=== PATIENT | female | born 1960 | race American Indian/Alaskan Native ===

== ENCOUNTER 2018-06-16 13:57 | Inpatient (IN) | payer MEDICAID ==
--- NOTE | 2018-06-16 15:38 | C.PDOC ---
History Of Present Illness 57 y/o female presents to ED requesting detox from heroin. Otherwise, she denies SI, HI, or any active physical complaints at this time. Time Seen by Provider: 06/16/18 14:40 Chief Complaint (Nursing): Substance Abuse History Per: Patient History/Exam Limitations: no limitations Onset/Duration Of Symptoms: Gradual Current Symptoms Are (Timing): Still Present Suicide/Self Injury Attempted (Context): None Modifying Factor(s): Other (heroin) Severity: None Pain Scale Rating Of: 0 Associated Symptoms: denies: Suicidal Thoughts, Suicidal Plan Involuntary Hold By: None Recent travel outside of the [place]: No Additional History Per: Patient Past Medical History Reviewed: Historical Data, Nursing Documentation, Vital Signs Vital Signs: Last Vital Signs Temp 98.7 F 06/16/18 14:03 Pulse 73 06/16/18 18:43 Resp 20 06/16/18 18:43 BP 152/102 H 06/16/18 18:43 Pulse Ox 100 06/16/18 18:43 - Medical History PMH: Asthma, HTN Denies: Diabetes, Hepatitis, HIV, Seizures, Sexually Transmitted Disease - [facility] Procedures DETOXIFICATION SERVICES FOR SUBSTANCE ABUSE TREATMENT (07/08/15) Family History: States: Unknown Family Hx - Social History Hx Alcohol Use: Yes Hx Substance Use: Yes (SEE TRIAGE NOTE) - Immunization History Hx Tetanus Toxoid Vaccination: No Hx Influenza Vaccination: No Review Of Systems Except As Marked, All Systems Reviewed And Found Negative. Constitutional: Negative for: Fever, Chills Cardiovascular: Negative for: Chest Pain, Palpitations Respiratory: Negative for: Cough, Shortness of Breath Gastrointestinal: Negative for: Nausea, Vomiting, Abdominal Pain Musculoskeletal: Negative for: Neck Pain, Back Pain Neurological: Negative for: Weakness, Numbness, Headache, Dizziness Physical Exam - Physical Exam Appears: Non-toxic, No Acute Distress Skin: Normal Color, Warm, Dry Head: Atraumatic, Normacephalic Eye(s): bilateral: Normal Inspection Oral Mucosa: Moist Neck: Normal ROM, Supple Cardiovascular: Rhythm Regular Respiratory: Normal Breath Sounds, No Rales, No Rhonchi, No Wheezing Gastrointestinal/Abdominal: Soft, No Tenderness Extremity: Normal ROM, No Deformity Neurological/Psych: Oriented x3, Normal Speech ED Course And Treatment - Laboratory Results Result Diagrams: 06/16/18 15:56 09/14/18 15:56 O2 Sat by Pulse Oximetry: 99 (on RA) Pulse Ox Interpretation: Normal Progress Note: Medically cleared for detox, accepted by . Medical Decision Making Medical Decision Making: Plan: Blood work Urinalysis Catapres On re-eval, is resting comfortably. No physical complaints at this time. Disposition - Disposition Disposition: HOSPITALIZED Disposition Time: 17:53 Condition: STABLE - Clinical Impression Clinical Impression: Opiate dependence - PA / GIS PROGRAMMER / Resident Statement MD/DO has reviewed & agrees with the documentation as recorded. - Scribe Statement The provider has reviewed the documentation as recorded by the Scribe Berry Blandon All medical record entries made by the Scribe were at my direction and personally dictated by me. I have reviewed the chart and agree that the record accurately reflects my personal performance of the history, physical exam, medical decision making, and the department course for this patient. I have also personally directed, reviewed, and agree with the discharge instructions and disposition. Decision To Admit - Pt Status Changed To: Hospital Disposition Of: Inpatient - Admit Certification Admit to Inpatient:: After my assessment, the patient will require hospitalization for at least two midnights. This is because of the severity of symptoms shown, intensity of services needed, and/or the medical risk in this patient being treated as an outpatient. - InPatient: Physician Admission Certification: I certify that this patient requires 2 or more midnights of care for the following reason:: Patient will need more than 2 days for detox. - . Bed Request Type: Detox Admitting Physician: Corey Miller Patient Diagnosis: Opiate dependence
[2018-06-16 16:07] LABS: BASO % 0.5 % (0.0-2.0); EOS # 0.1 K/uL (0.0-0.7); EOS % 1.7 % (0.0-4.0); HEMOGLOBIN 12.7 g/dL (11.0-16.0); LYMPH # 1.9 K/uL (1.0-4.3); LYMPH % 36.3 % (20.0-40.0); MEAN CELL VOLUME 87.3 fL (81.0-99.0); MEAN CORPUSCULAR HEMOGLOBIN 29.5 pg (27.0-31.0); MEAN CORPUSCULAR HGB CONC 33.8 g/dL (33.0-37.0); MEAN PLATELET VOLUME 8.5 fL (7.2-11.7); MONO # 0.5 K/uL (0.0-0.8); MONO % 9.5 % (0.0-10.0); NEUT # 2.6 K/uL (1.8-7.0); NRBC % 0.2 % (0.0-2.0); RBC 4.3 Mil/uL (3.80-5.20); RED CELL DISTRIBUTION WIDTH 14.7 % (11.5-14.5); WHITE BLOOD COUNT 5.1 K/uL (4.8-10.8)
[2018-06-16 16:18] LABS: SQUAMOUS EPITHIAL 7 /hpf (0-5); URINE BACTERIA OCC (<OCC); URINE BILIRUBIN NEGATIVE (NEGATIVE); URINE BLOOD NEGATIVE (NEGATIVE); URINE CLARITY Hazy (Clear); URINE COLOR Yellow (YELLOW); URINE GLUCOSE (UA) NORMAL (Normal); URINE PROTEIN NEGATIVE (NEGATIVE); URINE UROBILINOGEN NORMAL mg/dL (0.2-1.0)
[2018-06-16 16:22] LABS: URINE LEUKOCYTE ESTERASE 1+ Leu/uL (Negative)
[2018-06-16 16:24] LABS: ALB/GLOB RATIO 1.3 (1.0-2.1); ALBUMIN 4.2 g/dL (3.5-5.0); ALT/SGPT 25 U/L (9-52); AST/SGOT 18 U/L (14-36); BLOOD UREA NITROGEN 15 mg/dL (7-17); CALCIUM 9.8 mg/dl (8.6-10.4); GFR NON-AFRICAN AMERICAN > 60
[2018-06-16 16:38] LABS: BARBITURATES, UR NEGATIVE (NEGATIVE); BENZODIAZEPINES, UR NEGATIVE (NEGATIVE); PHENCYCLIDINE, UR NEGATIVE (NEGATIVE)
[2018-06-16 16:43] LABS: OPIATES, UR POSITIVE (NEGATIVE)
[2018-06-16] MEDS ORDERED: Buprenorphine Hydrochloride 2 mg SL ONE ×2 (19:41→21:00)
--- NOTE | 2018-06-16 21:04 | PCM.BM ---
<Anum Burgos - Last Filed: 06/16/18 21:03> Treatment Plan Problems - Problems identified on initial assessmt Potential for opiate withdrawal Date Initiated: 06/16/18 Time Initiated: 21:03 Assessment reference: NA Status: Active potential for alcohol withdrawal Date Initiated: 06/16/18 Time Initiated: 21:04 Assessment reference: NA Status: Active Treatment assets and liabiliti Patient Assests: ADL independent, negotiates basic needs, cognitively intact Patient Liabilities: substance abuse (opiates, cocaine ) - Milieu Protocol Maintain good personal hygiene: daily Encourage regular showers, daily Remind patient to perform daily oral care Conduct patient checks and document Observation sheet: Q15 minutes Maintain personal safety: every shift Educate patient to report safety concerns to staff, every shift Monitor environment for contraband/sharps Medication safety: Monitor for expected outcome, potential side effects: every shift, Assess barriers to learning: every shift, Assess readiness for medication education: every shift <Corey Miller - Last Filed: 06/17/18 16:31> - Diagnosis (1) Alcohol abuse Status: Acute Interventions: 06/17/18 16:31 * Assess 7x/week regarding severity of withdrawal * Educate regarding risks, benefits, side effects and alternatives of medications * Use Motivational Interviewing for abstinence * Use CBT for relapse prevention * Medication management for withdrawal symptoms * Encourage medication assisted treatment * <Niyah Ashraf - Last Filed: 06/19/18 13:56> Family Contact Family involvement: Famliy/SO not involved - Goals for Treatment Patient goals for treatment: Complete detox and apply for inpatient rehab program. Discharge/Continuing Care - Education Needs Education Needs: Patient Medication, Patient Diagnosis/Disease Process, Patient Coping Skills, Patient Anger Management skills, Patient Placement options, Patient Community resources - Discharge Discharge Criteria: Normal sleep pattern, No longer exhibiting s/s of withdrawal , Reduction of target symptoms Discharge to:: Substance Abuse Rehab - Treatment Team Participation Patient/Family/SO Statement: 06/19/18 13:56 "I wanna go to inpatient but I don't have ID..." Was Patient/Family/SO present at Treatment Team Meeting: Yes
--- NOTE | 2018-06-16 23:28 | CP.PCM.CON ---
Addendum entered and electronically signed by Antwon Bennett DO 06/17/18 01:09 : Assessment/plan Urinalysis positve for leukocyte esterase (1+) * Recheck UA stat, as sample has 7+ epithelial cells and may be contaminated Original Note: <Antwon Bennett - Last Filed: 06/16/18 23:25> History of Present Illness - History of Present Illness History of Present Illness: PGY-[address] Wagoner Patient is a 57 year old female with PMHx Bipolar disorder, depression, hypertension, asthma, IV heroin use who presents with symptoms of withdrawal including nausea and fatigue. Pt reports using 10-12 bags of heroin/day. Last drug use was yesterday. Pt also admits to drinking one 6-pack of beer/day, her last drink was yesterday. Medicine was consulted for management of hypertension. BP on admission was in 150s/110s. Patient is on 5mg Norvasc po daily as home medication and admits to being noncompliant with all of her medications due to her drug addiction. Patient did receive .1 mg Clonidine x2, but according to nursing had not yet received her daily Norvasc. Pt denies any headaches, fevers, chills, dizziness, palpitations, blurry vision. Pt denies SI or HI. PMHx: Bipolar disorder, MDD, IVDU, EtOh abuse, HTN, asthma PShx: Unknown Medications: Norvasc 5mg po daily, trazadone 100 mg po HS, Gabapentin 400 mg PO TID, Protonix 40mg po daily, Librium 25mg PO q4 prn, folic acid 1 mg po daily, hexavitamin 1 tab po daily, Thiamine 100 mg PO daily Allergies: NKA Social: IV heroin use, Etoh abuse as stated, 15 pack-year smoking history Fam hx- Mother - cancer Hospitalizations: Prior hospitalizations for heroin withdrawal Review of Systems - Constitutional Constitutional: Fatigue. absent: Chills, Fever - EENT Nose/Mouth/Throat: absent: Epistaxis, Nasal Discharge - Cardiovascular Cardiovascular: absent: Chest Pain, Chest Pain at Rest - Respiratory Respiratory: absent: Cough, Dyspnea - Gastrointestinal Gastrointestinal: Nausea. absent: Abdominal Pain, Diarrhea, Vomiting - Musculoskeletal Musculoskeletal: absent: Muscle Cramps, Muscle Weakness - Neurological Neurological: absent: Confusion, Dizziness, Numbness, Headaches, Syncope - Psychiatric Psychiatric: Depression - Endocrine Endocrine: absent: Polydipsia, Polyphagia Past Patient History - Past Medical History & Family History Past Medical History?: Yes - Past Social History Smoking Status: Heavy Smoker > 10 Cigarettes Daily - CARDIAC Hx Hypertension: Yes - PULMONARY Hx Asthma: Yes - NEUROLOGICAL Hx Seizures: No - HEMATOLOGICAL/ONCOLOGICAL Hx Human Immunodeficiency Virus (HIV): No - MUSCULOSKELETAL/RHEUMATOLOGICAL Hx Falls: No - GENITOURINARY/GYNECOLOGICAL Hx Sexually Transmitted Disorders: No - PSYCHIATRIC Hx Substance Use: Yes - SURGICAL HISTORY Hx Surgeries: No - ANESTHESIA Hx Anesthesia: No Hx Anesthesia Reactions: No Meds Allergies/Adverse Reactions: Allergies Allergy/AdvReac Type Severity Reaction Status Date / Time No Known Allergies Allergy Unverified 06/16/18 14:06 - Medications Medications: Current Medications Amlodipine Besylate (Norvasc) 5 mg PO DAILY DWAYNE Chlordiazepoxide (Librium) 25 mg PO Q4H PRN PRN Reason: Alcohol Withdrawal Chlordiazepoxide (Librium) 0 mg PO Q6 DWAYNE PRN Reason: Taper Stop: 06/20/18 23:59 Clonidine HCl (Catapres) 0.1 mg PO Q4H PRN PRN Reason: Symptoms of alcohol withdrawl Folic Acid (Folic Acid) 1 mg PO DAILY DWAYNE Gabapentin (Neurontin) 100 mg PO TID DWAYNE Multivitamins (Hexavitamin) 1 tab PO DAILY DWAYNE Pantoprazole Sodium (Protonix Ec Tab) 20 mg PO DAILY DWAYNE Thiamine HCl (Vitamin B1 Tab) 100 mg PO DAILY DWAYNE Trazodone HCl (Desyrel) 50 mg PO HS PRN PRN Reason: Insomnia Physical Exam - Head Exam Head Exam: ATRAUMATIC, NORMAL INSPECTION - Eye Exam Eye Exam: EOMI, Normal appearance - ENT Exam ENT Exam: Mucous Membranes Moist - Respiratory Exam Respiratory Exam: Clear to Auscultation Bilateral, NORMAL BREATHING PATTERN - Cardiovascular Exam Cardiovascular Exam: REGULAR RHYTHM, +S1, +S2 - GI/Abdominal Exam GI & Abdominal Exam: Normal Bowel Sounds, Soft. absent: Tenderness - Extremities Exam Extremities exam: Positive for: pedal pulses present. Negative for: pedal edema , tenderness - Neurological Exam Neurological exam: Alert, CN II-XII Intact, Normal Gait, Oriented x3 - Psychiatric Exam Psychiatric exam: Normal Affect, Normal Mood - Skin Skin Exam: Dry, Intact, Normal Color, Warm Results - Vital Signs Recent Vital Signs: Last Vital Signs Temp 98.6 F 06/16/18 21:43 Pulse 65 06/16/18 21:43 Resp 18 06/16/18 21:43 BP 113/79 06/16/18 21:43 Pulse Ox 95 06/16/18 21:43 - Labs Result Diagrams: 06/16/18 15:56 06/16/18 15:56 Labs: Laboratory Results - last 24 hr 06/16/18 06/16/18 06/16/18 15:56 15:56 15:56 WBC 5.1 RBC 4.30 Hgb 12.7 Hct 37.5 MCV 87.3 D MCH 29.5 MCHC 33.8 RDW 14.7 H Plt Count 232 MPV 8.5 Neut % (Auto) 52.0 Lymph % (Auto) 36.3 Bay % (Auto) 9.5 Eos % (Auto) 1.7 Baso % (Auto) 0.5 Neut # (Auto) 2.6 Lymph # (Auto) 1.9 Bay # (Auto) 0.5 Eos # (Auto) 0.1 Baso # (Auto) 0.0 Sodium 141 Potassium 4.3 Chloride 103 Carbon Dioxide 28 Anion Gap 15 BUN 15 Creatinine 0.8 Est GFR ( Amer) > 60 Est GFR (Non-Af Amer) > 60 Random Glucose 88 Calcium 9.8 Phosphorus Magnesium Total Bilirubin 0.4 AST 18 ALT 25 Alkaline Phosphatase 78 Total Protein 7.4 Albumin 4.2 Globulin 3.3 Albumin/Globulin Ratio 1.3 Urine Color Yellow Urine Clarity Hazy Urine pH 5.0 Ur Specific [place] 1.020 Urine Protein Negative Urine Glucose (UA) Normal Urine Ketones Negative Urine Blood Negative Urine Nitrate Negative Urine Bilirubin Negative Urine Urobilinogen Normal Ur Leukocyte Esterase 1+ H Urine WBC (Auto) 7 H Urine RBC (Auto) 1 Ur Squamous Epith Cells 7 H Urine Bacteria Occ H Urine Opiates Screen Urine Methadone Screen Ur Barbiturates Screen Ur Phencyclidine Scrn Ur Amphetamines Screen U Benzodiazepines Scrn U Oth Cocaine Metabols U Cannabinoids Screen Alcohol, Quantitative < 10 06/16/18 06/16/18 15:56 15:56 WBC RBC Hgb Hct MCV MCH MCHC RDW Plt Count MPV Neut % (Auto) Lymph % (Auto) Bay % (Auto) Eos % (Auto) Baso % (Auto) Neut # (Auto) Lymph # (Auto) Bay # (Auto) Eos # (Auto) Baso # (Auto) Sodium Potassium Chloride Carbon Dioxide Anion Gap BUN Creatinine Est GFR ( Amer) Est GFR (Non-Af Amer) Random Glucose Calcium Phosphorus 4.0 Magnesium 1.8 Total Bilirubin AST ALT Alkaline Phosphatase Total Protein Albumin Globulin Albumin/Globulin Ratio Urine Color Urine Clarity Urine pH Ur Specific [place] Urine Protein Urine Glucose (UA) Urine Ketones Urine Blood Urine Nitrate Urine Bilirubin Urine Urobilinogen Ur Leukocyte Esterase Urine WBC (Auto) Urine RBC (Auto) Ur Squamous Epith Cells Urine Bacteria Urine Opiates Screen Positive H Urine Methadone Screen Negative Ur Barbiturates Screen Negative Ur Phencyclidine Scrn Negative Ur Amphetamines Screen Negative U Benzodiazepines Scrn Negative U Oth Cocaine Metabols Positive H U Cannabinoids Screen Negative Alcohol, Quantitative Assessment & Plan - Assessment and Plan (Free Text) Assessment: 1) Hypertension * Initially 150s/110s, s/p Clonidine .1 mg x2 * Likely exacerbated by heroin withdrawal * One dose of daily Norvasc 5mg PO given (pt had not received her daily dose) * BP improved --> 113/79 * 2) IV Drug Abuse, ETOH Abuse, history bipolar, withdrawal * Psych managing Assessment/Plan Discussed with Dr. Rizwana Bennett, PGY-1 <Bob Wagoner - Last Filed: 06/17/18 06:34> Meds - Medications Medications: Current Medications Amlodipine Besylate (Norvasc) 5 mg PO DAILY DWAYNE Chlordiazepoxide (Librium) 25 mg PO Q4H PRN PRN Reason: Alcohol Withdrawal Chlordiazepoxide (Librium) 25 mg PO Q6 [facility] PRN Reason: Taper Stop: 06/20/18 23:59 Last Admin: 06/17/18 00:15 Dose: Not Given Clonidine HCl (Catapres) 0.1 mg PO Q4H PRN PRN Reason: Symptoms of alcohol withdrawl Folic Acid (Folic Acid) 1 mg PO DAILY [facility] Gabapentin (Neurontin) 100 mg PO TID DWAYNE Multivitamins (Hexavitamin) 1 tab PO DAILY DWAYNE Pantoprazole Sodium (Protonix Ec Tab) 20 mg PO DAILY DWAYNE Thiamine HCl (Vitamin B1 Tab) 100 mg PO DAILY DWAYNE Trazodone HCl (Desyrel) 50 mg PO HS PRN PRN Reason: Insomnia Results - Vital Signs Recent Vital Signs: Last Vital Signs Temp 98.6 F 06/16/18 21:43 Pulse 65 06/16/18 21:43 Resp 18 06/16/18 21:43 BP 113/79 06/16/18 21:43 Pulse Ox 95 06/16/18 21:43 - Labs Result Diagrams: 06/16/18 15:56 06/16/18 15:56 Labs: Laboratory Results - last 24 hr 06/16/18 06/16/18 06/16/18 15:56 15:56 15:56 WBC 5.1 RBC 4.30 Hgb 12.7 Hct 37.5 MCV 87.3 D MCH 29.5 MCHC 33.8 RDW 14.7 H Plt Count 232 MPV 8.5 Neut % (Auto) 52.0 Lymph % (Auto) 36.3 Bay % (Auto) 9.5 Eos % (Auto) 1.7 Baso % (Auto) 0.5 Neut # (Auto) 2.6 Lymph # (Auto) 1.9 Bay # (Auto) 0.5 Eos # (Auto) 0.1 Baso # (Auto) 0.0 Sodium 141 Potassium 4.3 Chloride 103 Carbon Dioxide 28 Anion Gap 15 BUN 15 Creatinine 0.8 Est GFR ( Amer) > 60 Est GFR (Non-Af Amer) > 60 Random Glucose 88 Calcium 9.8 Phosphorus Magnesium Total Bilirubin 0.4 AST 18 ALT 25 Alkaline Phosphatase 78 Total Protein 7.4 Albumin 4.2 Globulin 3.3 Albumin/Globulin Ratio 1.3 Urine Color Yellow Urine Clarity Hazy Urine pH 5.0 Ur Specific [place] 1.020 Urine Protein Negative Urine Glucose (UA) Normal Urine Ketones Negative Urine Blood Negative Urine Nitrate Negative Urine Bilirubin Negative Urine Urobilinogen Normal Ur Leukocyte Esterase 1+ H Urine WBC (Auto) 7 H Urine RBC (Auto) 1 Ur Squamous Epith Cells 7 H Urine Bacteria Occ H Urine Opiates Screen Urine Methadone Screen Ur Barbiturates Screen Ur Phencyclidine Scrn Ur Amphetamines Screen U Benzodiazepines Scrn U Oth Cocaine Metabols U Cannabinoids Screen Alcohol, Quantitative < 10 06/16/18 06/16/18 15:56 15:56 WBC RBC Hgb Hct MCV MCH MCHC RDW Plt Count MPV Neut % (Auto) Lymph % (Auto) Bay % (Auto) Eos % (Auto) Baso % (Auto) Neut # (Auto) Lymph # (Auto) Bay # (Auto) Eos # (Auto) Baso # (Auto) Sodium Potassium Chloride Carbon Dioxide Anion Gap BUN Creatinine Est GFR ( Amer) Est GFR (Non-Af Amer) Random Glucose Calcium Phosphorus 4.0 Magnesium 1.8 Total Bilirubin AST ALT Alkaline Phosphatase Total Protein Albumin Globulin Albumin/Globulin Ratio Urine Color Urine Clarity Urine pH Ur Specific [place] Urine Protein Urine Glucose (UA) Urine Ketones Urine Blood Urine Nitrate Urine Bilirubin Urine Urobilinogen Ur Leukocyte Esterase Urine WBC (Auto) Urine RBC (Auto) Ur Squamous Epith Cells Urine Bacteria Urine Opiates Screen Positive H Urine Methadone Screen Negative Ur Barbiturates Screen Negative Ur Phencyclidine Scrn Negative Ur Amphetamines Screen Negative U Benzodiazepines Scrn Negative U Oth Cocaine Metabols Positive H U Cannabinoids Screen Negative Alcohol, Quantitative Assessment & Plan - Date & Time Date: 06/17/18 (I have seen and examined the patient. I agree with the findings and plan of care as documented by Dr. Bennett. Patient in detox for history of IVDA and alcohol abuse. Managed as per psych. Consulted medicine team for hypertension. Received clonidine in ED. Continue patient's home med Norvasc. Patient noncompliant at home. Will monitor and adjust antihypertensive. Monitor for acute changes.) Time: 06:32 Attending/Attestation - Attestation I have personally seen and examined this patient.: Yes I have fully participated in the care of the patient.: Yes I have reviewed all pertinent clinical information: Yes
[2018-06-17] MEDS: Multiple Vitamins Tab PO SCH (10:15)
[2018-06-17] MEDS: Pantoprazole 20 mg EC Tab PO SCH (10:15)
[2018-06-17] MEDS ORDERED: Buprenorphine Hydrochloride 8 mg SL ONE (11:15)
[2018-06-17 12:45] LABS: SQUAMOUS EPITHIAL 14 /hpf (0-5); URINE BACTERIA RARE (<OCC); URINE BILIRUBIN NEGATIVE (NEGATIVE); URINE BLOOD NEGATIVE (NEGATIVE); URINE CLARITY Hazy (Clear); URINE COLOR Yellow (YELLOW); URINE GLUCOSE (UA) NORMAL (Normal); URINE LEUKOCYTE ESTERASE 2+ Leu/uL (Negative); URINE PROTEIN NEGATIVE (NEGATIVE); URINE UROBILINOGEN NORMAL mg/dL (0.2-1.0)
--- NOTE | 2018-06-17 13:40 | PCM.PSYCH ---
Initial Psychiatric Evaluation - Initial Psychiatric Evaluation Type of Admission: Voluntary Legal Status: Capacity Chief Complaint (in patient's own words): "I need detox" History of Present Illness and Precipitating Events: The patient is seen, chart reviewed and case discussed. This is a 57-year-old -[place] female, single with 4 children, all adults. The patient lives alone and she is on SSI due to bipolar depression. The patient is here for heroin detox; using 10-12 bags daily since she was 40 years old. She was in detox twice, and psych also twice but no rehabilitation or she never used MAT. She denies all other drugs except for cocaine and alcohol which she uses around 6 pack per day. She also smokes 1 pack per day cigarette. Past psych history: She was diagnosed with bipolar disorder and hospitalized twice last one was 2 years ago. No suicide attempts but she is still depressed. Legal history: Uncontrolled high blood pressure, she also had asthma. Family psych history: Denies Current Medications: Active Medications Generic Name Dose Route Start Last Admin Trade Name Freq PRN Reason Stop Dose Admin Amlodipine Besylate 5 mg 06/17/18 10:00 06/17/18 10:15 Norvasc PO 5 mg DAILY DWAYNE Administration Chlordiazepoxide 25 mg 06/16/18 19:54 Librium PO Q4H PRN Alcohol Withdrawal Chlordiazepoxide 25 mg 06/17/18 00:00 06/17/18 11:36 Librium PO 06/20/18 23:59 25 mg Q6 DWAYNE Administration Taper Clonidine HCl 0.1 mg 06/16/18 19:54 Catapres PO Q4H PRN Symptoms of alcohol withdrawl Folic Acid 1 mg 06/17/18 10:00 06/17/18 10:15 Folic Acid PO 1 mg DAILY DWAYNE Administration Gabapentin 100 mg 06/17/18 14:00 Neurontin PO TID DWAYNE Mirtazapine 15 mg 06/17/18 22:00 Remeron PO HS DWAYNE Multivitamins 1 tab 06/17/18 10:00 06/17/18 10:15 Hexavitamin PO 1 tab DAILY DWAYNE Administration Nicotine 1 patch 06/17/18 11:15 06/17/18 11:36 Nicoderm Cq TD 1 patch DAILY DWAYNE Administration Pantoprazole Sodium 20 mg 06/17/18 10:00 06/17/18 10:15 Protonix Ec Tab PO 20 mg DAILY DWAYNE Administration Quetiapine Fumarate 100 mg 06/17/18 22:00 Seroquel PO HS DWAYNE Thiamine HCl 100 mg 06/17/18 10:00 06/17/18 10:15 Vitamin B1 Tab PO 100 mg DAILY DWAYNE Administration Trazodone HCl 50 mg 06/16/18 19:54 Desyrel PO HS PRN Insomnia Past Psychiatric History - Past Psychiatric History Previous Treatment History: Inpatient Pertinent Medical Hx (Current Medical&Sleep Prob, Allergies): Allergies Allergy/AdvReac Type Severity Reaction Status Date / Time No Known Allergies Allergy Unverified 06/16/18 14:06 Gabapentin [Neurontin] 400 mg PO TID #90 cap 07/14/15 Pantoprazole [Protonix EC Tab] 40 mg PO DAILY #30 ect 07/14/15 amLODIPine [Norvasc] 5 mg PO DAILY #30 tab 07/14/15 traZODone [Desyrel] 100 mg PO HS PRN #30 tab 07/14/15 Review of Systems - Psychiatric Psychiatric: Abnormal Sleep Pattern, Anhedonia, Anxiety, Change in Appetite, Depression, Difficulty Concentrating, Mood Swings. absent: Hallucinations, Homicidal Ideation, Paranoia, Suicidal Ideation Mental Status Examination - Personal Presentation Personal Presentation: Looks older than stated age - Affect Affect: Constricted - Motor Activity Motor Activity: Calm - Reliability in Providing Information Reliability in Providing Information: Good - Speech Speech: Organized - Mood Mood: Depressed, Anxious - Formal Thought Process Formal Thought Process: No Impairment - Cognitive Functions Orientation: Person, Place, Situation, Time Sensorium: Alert Attention/Concentration: Easily distracted Abstract Thinking: [place] Estimate of Intelligence: Average Judgement: Intact, as evidence by: Insight regarding need for hospitalization Memory: Recent intact, as evidence by: Ability to recall events of the day, Remote intact, as evidenced by: Abilit to recall sig. life events - Risk Risk: Withdrawal, Diminished functioning - Strength & Assets Inventory Strength & Assets Inventory: Cooperative - Limitations Limitations: Living alone DSM 5 DX - DSM 5 DSM 5 Diagnosis: Opioid withdrawal Opioid use disorder, severe Cocaine use disorder, severe Alcohol use disorder, severe Tobacco use disorder, severe Bipolar 1 disorder, depressed - Recommended/Plan of Treatment Treatment Recommendations and Plan of Treatment: Taper with subutex and Librium for opiates and alcohol respectively Gabapentin for augmentation Remeron and Seroquel for depression, irritability, insomnia As needed medications All risks, benefits and alternatives of the meds discussed, and the pt agreed and understood. Attend groups and activities Supportive therapy and psychoeducation NC for abstinence CBT for relapse prevention Encourage MAT Refer to rehab or IOP, and self-help groups Smoking cessation with NC Nicotine patch if needed 34 min Projected ELOS: 5 days Prognosis: good with treatment - Smoking Cessation Smoking Cessation Initiated: Yes
--- NOTE | 2018-06-17 15:53 | CP.PCM.PN ---
<Yue Wilson - Last Filed: 06/17/18 15:58> Subjective - Date & Time of Evaluation Date of Evaluation: 06/17/18 Time of Evaluation: 08:00 - Subjective Subjective: Medicine progress note for Dr. Celeste: Patient was seen and evaluated at bedside. She states she feels horrible overall from her withdrawal. She was resting comfortably in bed. Patient stated she used to have some suprapubic tenderness a few days ago which had resolved. She denied urinary frequency or dysuria. She also denies headaches, changes in vision, dizziness. Objective - Vital Signs/Intake and Output Vital Signs (last 24 hours): Temp Pulse Resp BP Pulse Ox 99.0 F 60 18 137/98 H 98 06/17/18 13:07 06/17/18 13:07 06/17/18 13:07 06/17/18 13:07 06/17/18 13:07 - Medications Medications: Current Medications Amlodipine Besylate (Norvasc) 5 mg PO DAILY [facility] Last Admin: 06/17/18 10:15 Dose: 5 mg Chlordiazepoxide (Librium) 25 mg PO Q4H PRN PRN Reason: Alcohol Withdrawal Chlordiazepoxide (Librium) 25 mg PO Q6 [facility] PRN Reason: Taper Stop: 06/20/18 23:59 Last Admin: 06/17/18 11:36 Dose: 25 mg Clonidine HCl (Catapres) 0.1 mg PO Q4H PRN PRN Reason: Symptoms of alcohol withdrawl Folic Acid (Folic Acid) 1 mg PO DAILY [facility] Last Admin: 06/17/18 10:15 Dose: 1 mg Gabapentin (Neurontin) 100 mg PO TID [facility] Last Admin: 06/17/18 14:27 Dose: 100 mg Mirtazapine (Remeron) 15 mg PO HS [facility] Multivitamins (Hexavitamin) 1 tab PO DAILY [facility] Last Admin: 06/17/18 10:15 Dose: 1 tab Nicotine (Nicoderm Cq) 1 patch TD DAILY [facility] Last Admin: 06/17/18 11:36 Dose: 1 patch Pantoprazole Sodium (Protonix Ec Tab) 20 mg PO DAILY [facility] Last Admin: 06/17/18 10:15 Dose: 20 mg Quetiapine Fumarate (Seroquel) 100 mg PO HS [facility] Thiamine HCl (Vitamin B1 Tab) 100 mg PO DAILY [facility] Last Admin: 06/17/18 10:15 Dose: 100 mg Trazodone HCl (Desyrel) 50 mg PO HS PRN PRN Reason: Insomnia - Labs Labs: 06/16/18 15:56 06/16/18 15:56 - Constitutional Appears: Non-toxic, No Acute Distress - Head Exam Head Exam: NORMAL INSPECTION - Eye Exam Eye Exam: EOMI Pupil Exam: NORMAL ACCOMODATION - ENT Exam ENT Exam: Mucous Membranes Moist - Respiratory Exam Respiratory Exam: Clear to Ausculation Bilateral, NORMAL BREATHING PATTERN. absent: Respiratory Distress - Cardiovascular Exam Cardiovascular Exam: REGULAR RHYTHM, +S1, +S2 - GI/Abdominal Exam GI & Abdominal Exam: Soft, Normal Bowel Sounds. absent: Distended, Firm, Guarding, Tenderness Additional comments: no suprapubic tenderness - Extremities Exam Extremities Exam: Normal Inspection - Back Exam Back Exam: NORMAL INSPECTION Additional comments: no CVA tenderness - Neurological Exam Neurological Exam: Alert, Awake, Oriented x3 - Psychiatric Exam Psychiatric exam: Normal Affect, Normal Mood - Skin Skin Exam: Normal Color Assessment and Plan - Assessment and Plan (Free Text) Assessment: Hypertension - Norvasc 5mg PO daily - BP monitor - Low sodium diet Abnormal UA - UA abnormal but with many SC even on repeat - afebrile, no wbc, asymptomatic - Will check urine culture - no abx at this time IV Drug Abuse, ETOH Abuse, history bipolar, withdrawal * Psych managing Medicine to sign off at this time. Will follow up on urine culture. Please re- consult as necessary. <Austin Celeste - Last Filed: 06/17/18 16:22> Objective - Vital Signs/Intake and Output Vital Signs (last 24 hours): Temp Pulse Resp BP Pulse Ox 99.0 F 60 18 137/98 H 98 06/17/18 13:07 06/17/18 13:07 06/17/18 13:07 06/17/18 13:07 06/17/18 13:07 - Medications Medications: Current Medications Amlodipine Besylate (Norvasc) 5 mg PO DAILY [facility] Last Admin: 06/17/18 10:15 Dose: 5 mg Chlordiazepoxide (Librium) 25 mg PO Q4H PRN PRN Reason: Alcohol Withdrawal Chlordiazepoxide (Librium) 25 mg PO Q6 [facility] PRN Reason: Taper Stop: 06/20/18 23:59 Last Admin: 06/17/18 11:36 Dose: 25 mg Clonidine HCl (Catapres) 0.1 mg PO Q4H PRN PRN Reason: Symptoms of alcohol withdrawl Folic Acid (Folic Acid) 1 mg PO DAILY [facility] Last Admin: 06/17/18 10:15 Dose: 1 mg Gabapentin (Neurontin) 100 mg PO TID [facility] Last Admin: 06/17/18 14:27 Dose: 100 mg Mirtazapine (Remeron) 15 mg PO HS [facility] Multivitamins (Hexavitamin) 1 tab PO DAILY [facility] Last Admin: 06/17/18 10:15 Dose: 1 tab Nicotine (Nicoderm Cq) 1 patch TD DAILY [facility] Last Admin: 06/17/18 11:36 Dose: 1 patch Pantoprazole Sodium (Protonix Ec Tab) 20 mg PO DAILY [facility] Last Admin: 06/17/18 10:15 Dose: 20 mg Quetiapine Fumarate (Seroquel) 100 mg PO HS [facility] Thiamine HCl (Vitamin B1 Tab) 100 mg PO DAILY [facility] Last Admin: 06/17/18 10:15 Dose: 100 mg Trazodone HCl (Desyrel) 50 mg PO HS PRN PRN Reason: Insomnia - Labs Labs: 06/16/18 15:56 06/16/18 15:56 Attending/Attestation - Attestation I have personally seen and examined this patient.: Yes I have fully participated in the care of the patient.: Yes I have reviewed all pertinent clinical information, including history, physical exam and plan: Yes Notes (Text): Seen and examined by me,Lying on bed without discomfort Blood pressure better controlled Follow urine culture Assessment and the plan discussed and I agree with the plan.
--- NOTE | 2018-06-18 09:28 | PCM.PYCHPN ---
Psychiatric Progress Note - Psychiatric Progress Note Patient seen today, length of contact: 16 min Medication Change: Yes Medical Record Reviewed: Yes Mental Status Examination - Cognitive Function Orientation: Person, Place, Situation, Time Memory: Intact Attention: WNL Concentration: Poor Association: WNL Fund of Knowledge: Poor - Mood Mood: Depressed, Anxious - Affect Affect: Constricted - Speech Speech: Soft - Formal Thought Process Formal Thought Process: No Impairment - Suicidal Ideation Suicidal Ideation: No - Homicidal Ideation Homicidal Ideation: No Goal/Treatment Plan - Goal/Treatment Plan Need for Continued Stay: Severe depression anxiety, Severe functional impairment Progress Toward Problem(s) and Goals/Treatment Plan: Opioid withdrawal Opioid use disorder, severe Cocaine use disorder, severe Alcohol use disorder, severe Tobacco use disorder, severe Bipolar 1 disorder, depressed Taper with subutex and Librium for opiates and alcohol respectively Gabapentin for augmentationa Remeron and Seroquel for depression, irritability, insomnia As needed medications All risks, benefits and alternatives of the meds discussed, and the pt agreed and understood. Attend groups and activities Supportive therapy and psychoeducation [place] for abstinence CBT for relapse prevention Encourage MAT Refer to rehab or IOP, and self-help groups Smoking cessation with [place] Nicotine patch if needed
[2018-06-18] MEDS: Multiple Vitamins Tab PO SCH (10:32)
[2018-06-18] MEDS: Buprenorphine Hydrochloride 2 mg SL SCH (10:33)
[2018-06-18] MEDS: Pantoprazole 20 mg EC Tab PO SCH (10:33)
[2018-06-19] MEDS: Pantoprazole 20 mg EC Tab PO SCH (09:48)
[2018-06-19] MEDS: Multiple Vitamins Tab PO SCH (09:48)
[2018-06-19] MEDS: Buprenorphine Hydrochloride 2 mg SL SCH (09:51)
--- NOTE | 2018-06-19 14:26 | PCM.PYCHPN ---
Psychiatric Progress Note - Psychiatric Progress Note Patient seen today, length of contact: 15 min Patient Chief Complaint: "I am anxious" Problems Identified/Issues Discussed: The pt is seen, chart reviewed, case discussed with staff. The pt is compliant with medications and reports no side-effects. Symptoms are improving but needs more time to stabilize. Pt attends groups and activities. Support given, psycho-education provided. After care discussed. Medication Change: Yes (detox changes daily) Medical Record Reviewed: Yes Mental Status Examination - Cognitive Function Orientation: Person, Place, Situation, Time Memory: Intact Attention: WNL Concentration: Poor Association: WNL Fund of Knowledge: Poor - Mood Mood: Depressed, Anxious - Affect Affect: Constricted - Speech Speech: Soft - Formal Thought Process Formal Thought Process: No Impairment - Suicidal Ideation Suicidal Ideation: No - Homicidal Ideation Homicidal Ideation: No Goal/Treatment Plan - Goal/Treatment Plan Need for Continued Stay: Severe depression anxiety, Severe functional impairment Progress Toward Problem(s) and Goals/Treatment Plan: Taper with subutex and Librium for opiates and alcohol respectively Gabapentin for augmentation Remeron and Seroquel for depression, irritability, insomnia As needed medications All risks, benefits and alternatives of the meds discussed, and the pt agreed and understood. Attend groups and activities Supportive therapy and psychoeducation [place] for abstinence CBT for relapse prevention Encourage MAT Refer to rehab or IOP, and self-help groups Smoking cessation with [place] Nicotine patch if needed
[2018-06-19] MEDS: Magnesium Hydroxide Susp 30 ml UD PO SCH (17:02)
--- NOTE | 2018-06-20 08:53 | PCM.PYCHDC ---
Mental Status Examination - Mental Status Examination Orientation: Person Discharge Summary - Discharge Note Consultations:: List each consultation separately and include: 1. Reason for request. 2. Findings. 3. Follow-up Summary of Hospital Course include:: 1. Description of specific treatment plan utilized for patients during their course of treatmen. 2. Summarize the time- course for resolution of acute symptoms and/or regressed behaviors. 3. Describe issues identified and worked on during hospitalization. 4. Describe medication utilized. 5. Describe medical problems identified and treated. 6. Reassessment of suicide risk Summary of Hospital Course: The patient is seen, chart reviewed and case discussed. This is a 57-year-old -[place] female, single with 4 children, all adults. The patient lives alone and she is on SSI due to bipolar depression. The patient is here for heroin detox; using 10-12 bags daily since she was 40 years old. She was in detox twice, and psych also twice but no rehabilitation or she never used MAT. She denies all other drugs except for cocaine and alcohol which she uses around 6 pack per day. She also smokes 1 pack per day cigarette. Past psych history: She was diagnosed with bipolar disorder and hospitalized twice last one was 2 years ago. No suicide attempts but she is still depressed. Legal history: Uncontrolled high blood pressure, she also had asthma. Family psych history: Denies Wait-listed at [facility] - Diagnosis (1) Alcohol abuse Current Visit: No Status: Acute Comment: Continue management as per psych. Subutec 6mg SL daily Librium 25 mg PO Q4H PRN Librium 25 mg PO Q6H [facility] Haldol 2 mg PO Q2H PRN Atarax 25 mg PO Q4H PRN Trazodone 50 mg PO HS PRN MV - Final Diagnosis (DSM 5) Condition upon Discharge: STABLE Disposition: HOME/ ROUTINE Follow-up Treatment Plan: Taper with subutex and Librium for opiates and alcohol respectively Gabapentin for augmentation Remeron and Seroquel for depression, irritability, insomnia As needed medications All risks, benefits and alternatives of the meds discussed, and the pt agreed and understood. Attend groups and activities Supportive therapy and psychoeducation [place] for abstinence CBT for relapse prevention Encourage MAT Refer to rehab or IOP, and self-help groups Smoking cessation with [place] Nicotine patch if needed Prescriptions/Medication Reconciliation: amLODIPine [Norvasc] 5 mg PO DAILY #30 tab Gabapentin [Neurontin] 100 mg PO TID #90 cap Mirtazapine [Remeron] 15 mg PO HS #30 tab Multivitamins [Hexavitamin] 1 tab PO DAILY #30 tab Pantoprazole [Protonix EC Tab] 20 mg PO DAILY #30 ect QUEtiapine [Seroquel] 100 mg PO HS #30 tab
[2018-06-20] MEDS: Pantoprazole 20 mg EC Tab PO SCH (09:17)
[2018-06-20] MEDS: Magnesium Hydroxide Susp 30 ml UD PO SCH (09:17)
[2018-06-20] MEDS: Multiple Vitamins Tab PO SCH (09:18)
[2018-06-20] MEDS: Buprenorphine Hydrochloride 2 mg SL SCH (09:18)
[2018-06-20 09:25] VITALS: RESP 19; TEMP 98.6; O2SAT 95
[2018-06-20 11:08] VITALS: BP 125/92; PULSE 105
== END 2018-06-20 10:00 | disposition home or self-care (01) | DRG 745 ==
LOC: C.ER 13:57 → C.7D 17:50
PROVIDERS: ADMIT Psychiatry & Neurology Psychiatry; ATTEND Psychiatry & Neurology Psychiatry
PROC: HZ2ZZZZ Detoxification Services for Substance Abuse Treatment (ICD-10-PCS; principal; 2018-06-16)
PROC: HZ52ZZZ Individual Psychotherapy for Substance Abuse Treatment, Cognitive-Behavioral (ICD-10-PCS; 2018-06-16)
PROC: HZ59ZZZ Individual Psychotherapy for Substance Abuse Treatment, Supportive (ICD-10-PCS; 2018-06-16)
PROC: HZ56ZZZ Individual Psychotherapy for Substance Abuse Treatment, Psychoeducation (ICD-10-PCS; 2018-06-16)
PROC: HZ42ZZZ Group Counseling for Substance Abuse Treatment, Cognitive-Behavioral (ICD-10-PCS; 2018-06-16)
PROC: HZ46ZZZ Group Counseling for Substance Abuse Treatment, Psychoeducation (ICD-10-PCS; 2018-06-16)
PROC: GZHZZZZ Group Psychotherapy (ICD-10-PCS; 2018-06-16)
PROC: GZ58ZZZ Individual Psychotherapy, Cognitive-Behavioral (ICD-10-PCS; 2018-06-16)
PROC: GZ56ZZZ Individual Psychotherapy, Supportive (ICD-10-PCS; 2018-06-16)
DX: F11.23 Opioid dependence with withdrawal (principal); F14.20 Cocaine dependence, uncomplicated; F17.210 Nicotine dependence, cigarettes, uncomplicated; G47.00 Insomnia, unspecified; F31.9 Bipolar disorder, unspecified; I10 Essential (primary) hypertension; J45.909 Unspecified asthma, uncomplicated; F10.20 Alcohol dependence, uncomplicated; Y90.0 Blood alcohol level of less than 20 mg/100 ml; Z91.14 Patient's other noncompliance with medication regimen